=== PATIENT | male | born 1935 | race Caucasian/White ===

== ENCOUNTER 2017-01-23 10:55 | Observation (INO) | payer MEDICARE ==
[2017-01-23] VITALS (7 sets, daily range): BP systolic 151–180; BP diastolic 67–77; PULSE 60–67; RESP 17–23; TEMP 97.5–98.6; O2SAT 95–98
[~2017-01-23] VITALS: Ht 177.8 cm; Wt 84.0 kg
[~2017-01-23 10:55] MED LIST: 1-ME1LIQ PO; ASPI81TA82 PO; D31000TA PO; EMPA1TAB3 PO; GABA300C3 PO; GLUCTAB PO; HYDR10SO PO; LANS30 PO; LIPI80TA16 PO; LISI2.5T55 PO; PLAV75TA PO
[2017-01-23] MEDS ORDERED: ASPIRIN 81 MG CHEW TAB PO ONE (11:30)
[2017-01-23] MEDS ORDERED: SODIUM CHLORIDE 0.9% FLUSH 10 ML FLUSH IVF PRN (11:30)
--- NOTE | 2017-01-23 11:31 | PD ---
HPI Chief Complaint: Chest Pain Time Seen by Provider: 11:15 Travel History International Travel<30 days: No Contact w/Intl Traveler<30days: No Traveled to known affect area: No History of Present Illness HPI Patient comes in for evaluation of left sided chest pain that began today. Patient describes pain as dull ache without radiation. Patient reports associated left upper extremity numbness and tingling. Patient reports he's been having intermittent left upper extremity numbness and tingling over the past couple days but states this first time he has had chest pain with it. Patient reports symptoms lasted approximately 2 hours. Denies any symptoms currently. Patient denies anything making it better or worse. Denies any nausea, vomiting, shortness of breath, headaches, dizziness, diaphoresis, abdominal pain, weakness, or fevers. Patient is uncertain of his last stress test or cardiac catheter. Patient does have a history of a stent and pacemaker. Patient is followed by Dr. Gongora and reports last seeing him 6 months ago. Patient's past medical history includes sick sinus syndrome, diabetes mellitus, CAD, GERD, hypertension, and hyperlipidemia. Patient reports taking baby aspirin daily reports and taking it this morning. PFSH Past Medical History Arthritis: Yes Blood Disorders: No Cancer: No Cardiac Catheterization: Yes Cardiovascular Problems: Yes (STENTS, PACEMAKER ) Diabetes: Yes (insulin, metformin) Diminished Hearing: Yes (hearing aid left ) Endocrine: Yes Gastrointestinal Disorders: Yes (REFLUX) GERD: Yes Genitourinary: No Hepatitis: No Hiatal Hernia: No Hypertension: Yes Immune Disorder: No Musculoskeletal: Yes (NECK, ARTHRITIES) Neurologic: Yes (TINGLING IN LEFT ARM AND LEFT LEG PERIODICALLY) Psychiatric: No Reproductive: No Respiratory: Yes Thyroid Disease: No Past Surgical History Abdominal Surgery: No AICD: No Arteriovenous Shunt: No Cardiac Surgery: No Coronary Stent: Yes (x1) Ear Surgery: No Endocrine Surgery: No Eye Surgery: No Genitourinary Surgery: No Insulin Pump: No Joint Replacement: Yes (BILAT KNEES) Oral Surgery: Yes (T & A) Pacemaker: No Thoracic Surgery: No Tonsillectomy: Yes Other Surgery: Yes Social History Alcohol Use: Yes (OCC) Tobacco Use: No Substance Use: No Allergies-Medications (Allergen,Severity, Reaction): Coded Allergies: Sulfa (Sulfonamide Antibiotics) (Verified Allergy, Severe, Hives, 01/23/17 ) captopril (Verified Allergy, Unknown, 01/23/17) codeine (Verified Allergy, Unknown, 01/23/17) metoprolol (Verified Allergy, Unknown, 01/23/17) Reported Meds & Prescriptions Reported Meds & Active Scripts Active Amlodipine Besylate 10 mg (Amlodipine Besylate) 10 Mg Tab 1 Tab PO DAILY Hydrocodone/Acetaminophen 10 mg/325 mg 1 Tab 1 Tab PO Q4H PRN Reported D3 (Cholecalciferol) 1,000 Unit Tab 5,000 Unit PO DAILY Jardiance (Empagliflozin) 25 Mg Tab 1 Tab PO Lisinopril 2.5 mg (Lisinopril) 2.5 Mg Tab 1 Tab PO DAILY Lansoprazole 30 Mg Cap 30 Mg PO DAILY Plavix (Clopidogrel Bisulfate) 75 Mg Tab 75 Mg PO DAILY Lipitor (Atorvastatin Calcium) 80 Mg Tab 80 Mg PO HS Gabapentin 300 Mg Cap 600 Mg PO HS Aspir-81 (Aspirin) 81 Mg Tab 162 Mg PO DAILY Metformin (Metformin HCl) 500 Mg Tab 1,000 Mg PO DAILYAC Review of Systems Except as stated in HPI: all other systems reviewed are Neg Physical Exam Narrative GENERAL: Well-developed, overly nourished, in no acute distress, and non-ill appearing. SKIN: Focused skin assessment warm and dry. HEAD: Atraumatic. Normocephalic. EYES: Pupils equal and round. EOMI. No scleral icterus. No injection or drainage. ENT: No nasal bleeding or discharge. Mucous membranes pink and moist. NECK: Trachea midline. No JVD. Supple. No nuclear rigidity. CARDIOVASCULAR: Regular rate and rhythm. Murmur appreciated. RESPIRATORY: No accessory muscle use. No respiratory distress. Clear to auscultation. Breath sounds equal bilaterally. MUSCULOSKELETAL: No obvious deformities. No clubbing. No cyanosis. No edema. Full range of motion. NEUROLOGICAL: Awake and alert. No obvious cranial nerve deficits. Motor grossly within normal limits. Normal speech. PSYCHIATRIC: Appropriate mood and affect; insight and judgment normal. Data Data Last Documented VS Vital Signs Date Time Temp Pulse Resp B/P (MAP) Pulse Ox O2 Delivery O2 Flow Rate FiO2 01/23/17 11:40 17 97 Room Air 01/23/17 10:57 98.6 65 180/74 (109) Orders Orders Electrocardiogram (01/23/17 11:24) Basic Metabolic Panel (Bmp) (01/23/17 11:24) Ckmb (Isoenzyme) Profile (01/23/17 11:24) Complete Blood Count With Diff (01/23/17 11:24) Magnesium (Mg) (01/23/17 11:24) Prothrombin Time / Inr (Pt) (01/23/17 11:24) Act Partial Throm Time (Ptt) (01/23/17 11:24) Troponin I (01/23/17 11:24) Chest, Single Ap (01/23/17 11:24) Ecg Monitoring (01/23/17 11:24) Bilateral Bp Monitoring (01/23/17 11:24) Iv Access Insert/Monitor (01/23/17 11:24) Oximetry (01/23/17 11:24) Oxygen Administration (01/23/17 11:24) Aspirin Chew (Aspirin Chew) (01/23/17 11:30) Sodium Chloride 0.9% Flush (Ns Flush) (01/23/17 11:30) CKMB (01/23/17 11:50) CKMB% (01/23/17 11:50) Admit Order (Ed Use Only) (01/23/17 12:55) Labs Laboratory Tests Test 01/23/17 11:50 White Blood Count 5.4 TH/MM3 Red Blood Count 4.19 MIL/MM3 Hemoglobin 14.0 GM/DL Hematocrit 42.1 % Mean Corpuscular Volume 100.4 FL Mean Corpuscular Hemoglobin 33.5 PG Mean Corpuscular Hemoglobin Concent 33.4 % Red Cell Distribution Width 12.4 % Platelet Count 125 TH/MM3 Mean Platelet Volume 9.0 FL Neutrophils (%) (Auto) 79.8 % Lymphocytes (%) (Auto) 12.2 % Monocytes (%) (Auto) 6.6 % Eosinophils (%) (Auto) 1.1 % Basophils (%) (Auto) 0.3 % Neutrophils # (Auto) 4.3 TH/MM3 Lymphocytes # (Auto) 0.7 TH/MM3 Monocytes # (Auto) 0.4 TH/MM3 Eosinophils # (Auto) 0.1 TH/MM3 Basophils # (Auto) 0.0 TH/MM3 CBC Comment DIFF FINAL Differential Comment Prothrombin Time 11.6 SEC Prothromb Time International Ratio 1.0 RATIO Activated Partial Thromboplast Time 26.3 SEC Blood Urea Nitrogen 16 MG/DL Creatinine 1.07 MG/DL Random Glucose 331 MG/DL Calcium Level 8.9 MG/DL Magnesium Level 1.9 MG/DL Sodium Level 134 MEQ/L Potassium Level 5.0 MEQ/L Chloride Level 99 MEQ/L Carbon Dioxide Level 29.6 MEQ/L Anion Gap 5 MEQ/L Estimat Glomerular Filtration Rate 67 ML/MIN Total Creatine Kinase 166 U/L Creatine Kinase MB 1.4 NG/ML Troponin I LESS THAN 0.02 NG/ML MDM Medical Decision Making Medical Screen Exam Complete: Yes Emergency Medical Condition: Yes Interpretation(s) EKG reviewed by Dr. Galeano shows atrial paced rhythm with ventricular rate of 76. No STEMI. Differential Diagnosis Acute coronary syndrome, atypical chest pain, electrolyte melena, pneumonia, other Narrative Course Patient was seen and examined. Initial laboratory radiological studies were ordered. IV was established and patient placed on cardiac monitoring. Patient given additional dose of aspirin. Discussed patient with Dr. Milton, who recommends contacting patient's field worker to see if they want patient in the chest pain center versus admitted to medicine. Discussed patient with patient' s field worker, who recommends placing patient in the chest pain center. Discussed all findings and plan of care with patient was agreeable for admission. All questions were answered. Patient remained stable throughout ED course. Physician Communication Physician Communication [phone] gongora patient's field worker, who recommended having patient placed in the place a chest pain center for additional workup and he can be contacted if anything comes out positive. Diagnosis Primary Impression: Chest pain Qualified Codes: R07.9 - Chest pain, unspecified Admitting Information Admitting Physician Requests: Observation Condition: Stable Bebo Jimenes Jan 23, 2017 11:31
--- NOTE | 2017-01-23 11:56 | RADRPT ---
EXAM DATE/TIME: 01/23/2017 11:38 [facility] COMPARISON: CHEST SINGLE AP, August 01, 2015, 9:45. INDICATIONS : Chest pain. MEDICAL HISTORY : Myocardial infarction. SURGICAL HISTORY : Coronary artery stent. Pacemaker. ENCOUNTER: Initial ACUITY: 1 day PAIN SCORE: 6/10 LOCATION: Bilateral chest FINDINGS: A single view of the chest demonstrates the lungs to be symmetrically aerated without evidence of mas s, infiltrate or effusion. Pacer on the left. The cardiomediastinal contours are unremarkable. Oss eous structures are intact. CONCLUSION: No acute disease. Ivan Eisenberg MD FACR on January 23, 2017 at 11:54 Board Certified Radiologist. This report was verified electronically.
[2017-01-23 12:24] LABS: AUTOMATED NEUTROPHIL # 4.3 TH/MM3 (1.8-7.7); BASOPHIL % 0.3 % (0.0-2.0); EOSINOPHIL # 0.1 TH/MM3 (0-0.4); EOSINOPHIL % 1.1 % (0.0-4.0); HEMATOCRIT 42.1 % (39.0-51.0); HEMO FLAGS DIFF FINAL; LYMPH % 12.2 % (9.0-44.0); LYMPHOCYTE # 0.7 TH/MM3 (1.0-4.8); MEAN CELL VOLUME 100.4 FL (80.0-100.0); MEAN CORPUSCULAR HEMOGLOBIN 33.5 PG (27.0-34.0); MEAN CORPUSCULAR HGB CONC 33.4 % (32.0-36.0); MONO % 6.6 % (0.0-8.0); NEUT % 79.8 % (16.0-70.0); PLATELET COUNT 125 TH/MM3 (150-450); RED BLOOD COUNT 4.19 MIL/MM3 (4.50-5.90); RED CELL DISTRIBUTION WIDTH 12.4 % (11.6-17.2); WHITE BLOOD COUNT 5.4 TH/MM3 (4.0-11.0)
[2017-01-23 12:31] LABS: APTT (PATIENT) 26.3 SEC (24.3-30.1); PROTHROMBIN TIME - PATIENT 11.6 SEC (9.8-11.6)
[2017-01-23 12:37] LABS: ANION GAP 5 MEQ/L (5-15); BICARBONATE 29.6 MEQ/L (21.0-32.0); BLOOD UREA NITROGEN 16 MG/DL (7-18); CHLORIDE 99 MEQ/L (98-107); GLOMERULAR FILTRATION RATE 67 ML/MIN (>89); MAGNESIUM 1.9 MG/DL (1.5-2.5); SODIUM (NA) 134 MEQ/L (136-145)
[2017-01-23 12:40] LABS: CREATINE KINASE 166 U/L (39-308)
[2017-01-23 12:52] LABS: CKMB 1.4 NG/ML (0.5-3.6)
--- NOTE | 2017-01-23 13:39 | EKG ---
Date Performed: 01/23/2017 Time Performed: 11:06:57 PTAGE: 81 years EKG: ELECTRONIC ATRIAL PACEMAKER LEFT ANTERIOR FASCICULAR BLOCK MINIMAL VOLTAGE CRITERIA FOR LVH , CONSIDER NORMAL VARIANT ANTEROSEPTAL MYOCARDIAL INFARCTION ABNORMAL ECG PREVIOUS TRACING : 08/02/2015 05.37 DOCTOR: Juan Manuel Lopez Interpretating Date/Time 01/23/2017 13:38:08
[2017-01-23] MEDS ORDERED: LISI-519 PO (14:07)
[2017-01-23] MEDS ORDERED: LANTUS2P SQ (14:11)
[2017-01-23] MEDS ORDERED: NOVOLOGP2 SQ ×2 (14:11→14:29)
[2017-01-23] MEDS ORDERED: cloNIDine HCL 0.1 MG TAB PO PRN (14:15)
[2017-01-23] MEDS ORDERED: ACETAMINOPHEN/HYDROcodone 325 MG/7.5 MG TAB PO PRN (14:15)
[2017-01-23] MEDS ORDERED: ONDANSETRON HCL 4 MG/2 ML VIAL IV PUSH PRN (14:15)
[2017-01-23] MEDS ORDERED: ACETAMINOPHEN 500 MG CPLT PO PRN (14:15)
[2017-01-23] MEDS ORDERED: GLUCAGON 1 MG/ML VIAL OTHER PRN (14:15)
[2017-01-23] MEDS ORDERED: SODIUM CHLORIDE 0.9% FLUSH 5 ML FLUSH IVF PRN (14:15)
[2017-01-23] MEDS ORDERED: DEXTROSE 50% IN WATER 50 ML VIAL(D50) IV PUSH PRN (14:15)
[2017-01-23] MEDS ORDERED: HYDR25TA5 PO (14:29)
[2017-01-23 16:15] LABS: CREATINE KINASE 158 U/L (39-308)
[2017-01-23 16:27] LABS: CKMB 1.2 NG/ML (0.5-3.6)
--- NOTE | 2017-01-23 16:30 | HHI.HP ---
[facility] Primary Care Physician Rosalba Edward Jr, MD Chief Complaint Chest pain History of Present Illness This is a 81-year-old male with history of CAD with stenting most recently 2013 as well as having a pacemaker July [address] John polk that presents to ED with a complaint of a dull left-sided chest discomfort that began 8:00 this morning. It was 4 out of 10. Mildly diaphoretic. No shortness of breath or nausea. Symptoms lasted 3 hours. Symptoms do not feel similar to when eating his stent. Denies recent illness. Denies fevers or chills. He believes he is compliant was medications however he will have to look at his medications at home to see be still taking a statin. Review of Systems General: Patient denies fevers, chills recent, and recent travel HEENT: Patient denies headache, sore throat, difficulty swallowing. Cardiovascular: Has the chest discomfort as mentioned above. Denies sensation of heart beating rapidly or irregularly. No syncope. Mildly diaphoretic. Respiratory: Denies shortness of breath or inspirational chest discomfort. Denies coughing wheezing or hemoptysis. GI: Patient denies nausea, vomiting, diarrhea, abdominal pain, bloody stools. Musculoskeletal: Patient denies joint pain or edema. Denies calf pain or edema. Neurovascular: Patient denies numbness, tingling, weakness in extremities. Denies headache. Endocrine: Denies polyuria and polydipsia. Hematologic: Denies easy bruising. Skin: Denies rash or itching. Past Family Social History Allergies: Coded Allergies: Sulfa (Sulfonamide Antibiotics) (Verified Allergy, Severe, Hives, 01/23/17 ) captopril (Verified Allergy, Unknown, 01/23/17) codeine (Verified Allergy, Unknown, 01/23/17) metoprolol (Verified Allergy, Unknown, 01/23/17) Past Medical History CAD with stenting. Pacemaker. Hypertension, hyperlipidemia, diabetes. Past Surgical History Pacemaker. Cardiac catheterization with stenting. Reported Medications Reported Meds & Active Scripts Active 1-Methyl 2-Pyrrolidinone (1-Methyl 2-Pyrrolidone (Bulk)) 10 Mg Tab 1 Tab PO DAILY Hydrocodone/Acetaminophen (Miscellaneous Medication) 1 Tab 1 Tab PO Q4H PRN Reported Novolog Inj (Insulin Aspart) 1,000 Unit/10 Ml Vial 5-12 Units SQ ACHS Max dose at bedtime ( ) units; sugars less than 70,(0) units; sugars 150-199,(2) units; sugars 200-249,(4) units; sugars 250-299,(7) units; sugars 300-349,(10) units; sugars greater than 349,(12)units Hydrochlorothiazide 25 Mg Tab 25 Mg PO DAILY Lantus Inj (Insulin Glargine) 1,000 Unit/10 Ml Vial 15 Units SQ HS Lisinopril 5 Mg Tab 5 Mg PO DAILY D3 (Cholecalciferol) 1,000 Unit Tab 5,000 Unit PO DAILY Lansoprazole 30 Mg Cap 30 Mg PO DAILY Plavix (Clopidogrel Bisulfate) 75 Mg Tab 75 Mg PO DAILY Lipitor (Atorvastatin Calcium) 80 Mg Tab 80 Mg PO HS Gabapentin 300 Mg Cap 600 Mg PO HS Aspir-81 (Aspirin) 81 Mg Tab 162 Mg PO DAILY Glucophage XR 24 HR (Metformin HCl) 500 Mg Tab 1,000 Mg PO DAILYAC Active Ordered Medications Current Medications Medications (Trade) Dose Ordered Sig/Elke Route Start Time Stop Time Status Last Admin (Lipitor) 80 mg HS PO 01/23/17 21:00 (Plavix) 75 mg DAILY PO 01/24/17 09:00 (Neurontin) 600 mg HS PO 01/23/17 21:00 (Protonix) 40 mg DAILY PO 01/24/17 09:00 (NS Flush) 2 ml UNSCH PRN IVF 01/23/17 14:15 (NS Flush) 2 ml BID IVF 01/23/17 21:00 (Tylenol) 500 mg Q4H PRN PO 01/23/17 14:15 ([place] 7.5-325 Mg) 1 tab Q4H PRN PO 01/23/17 14:15 (Zofran Inj) 4 mg Q6H PRN IV PUSH 01/23/17 14:15 (Aspirin) 325 mg DAILY PO 01/24/17 09:00 (Catapres) 0.1 mg Q4H PRN PO 01/23/17 14:15 (D50w (Vial) Inj) 50 ml UNSCH PRN IV PUSH 01/23/17 14:15 (Glucagon Inj) 1 mg UNSCH PRN OTHER 01/23/17 14:15 (NovoLOG SUPPLEMENTAL SCALE) 1 ACHS SLIDING SCALE SQ 01/23/17 17:00 (Prinivil) 5 mg HS PO 01/23/17 21:00 Family History There is family history of CAD. Social History Patient quit smoking 30+ years ago. He has occasional glass of wine at night. Denies illicit drugs. Physical Exam Vital Signs Vital Signs Date Time Temp Pulse Resp B/P (MAP) Pulse Ox O2 Delivery O2 Flow Rate FiO2 01/23/17 15:57 79 16 153/71 (98) 99 01/23/17 15:12 21 01/23/17 14:30 62 23 158/74 (102) 97 Room Air 01/23/17 12:59 60 17 160/67 (98) 95 Room Air 01/23/17 11:40 17 97 Room Air 01/23/17 10:57 98.6 65 18 180/74 (109) 98 Room Air Physical Exam GENERAL: This is a well-nourished, well-developed patient, in no apparent distress. Patient speaks in clear complete sentences. Patient is pleasant. HEENT: Head is atraumatic and normocephalic. Neck is supple without lymphadenopathy and trachea is midline. No JVD or carotid bruits. CARDIOVASCULAR: Grade 2-3 systolic murmur right sternal border radiating to the neck. Regular rate and rhythm without gallops, or rubs. RESPIRATORY: Clear to auscultation. Breath sounds equal bilaterally. No wheezes , rales, or rhonchi. Chest wall is nontender. No use of accessory muscles. GASTROINTESTINAL: Abdomen is nontender, nondistended. Abdomen soft. No obvious pulsatile mass or bruit. No CVA tenderness. Strong femoral pulses bilaterally. Normal bowel sounds in all quadrants. MUSCULOSKELETAL: Patient is moving upper and lower extremities freely. No calf tenderness or edema, no Homans sign. Strong pulses in upper and lower extremities. NEUROLOGICAL: Patient is alert and oriented. Cranial nerves 2-12 are grossly intact. No focal deficits and speech is clear. SKIN: No rash and turgor is normal. Laboratory Laboratory Tests Test 01/23/17 11:50 01/23/17 15:40 White Blood Count 5.4 Red Blood Count 4.19 Hemoglobin 14.0 Hematocrit 42.1 Mean Corpuscular Volume 100.4 Mean Corpuscular Hemoglobin 33.5 Mean Corpuscular Hemoglobin Concent 33.4 Red Cell Distribution Width 12.4 Platelet Count 125 Mean Platelet Volume 9.0 Neutrophils (%) (Auto) 79.8 Lymphocytes (%) (Auto) 12.2 Monocytes (%) (Auto) 6.6 Eosinophils (%) (Auto) 1.1 Basophils (%) (Auto) 0.3 Neutrophils # (Auto) 4.3 Lymphocytes # (Auto) 0.7 Monocytes # (Auto) 0.4 Eosinophils # (Auto) 0.1 Basophils # (Auto) 0.0 CBC Comment DIFF FINAL Differential Comment Prothrombin Time 11.6 Prothromb Time International Ratio 1.0 Activated Partial Thromboplast Time 26.3 Blood Urea Nitrogen 16 Creatinine 1.07 Random Glucose 331 Calcium Level 8.9 Magnesium Level 1.9 Sodium Level 134 Potassium Level 5.0 Chloride Level 99 Carbon Dioxide Level 29.6 Anion Gap 5 Estimat Glomerular Filtration Rate 67 Total Creatine Kinase 166 158 Creatine Kinase MB 1.4 Troponin I LESS THAN 0.02 0.02 Result Diagram: 01/23/17 1150 01/23/17 1150 Imaging Last 48 hours Impressions Chest X-Ray 01/23/17 1124 Signed Impressions: Service Date/Time: Monday, January 23, 2017 11:38 - CONCLUSION: No acute disease. Ivan Eisenberg MD FACR Course Initial EKG is atrial paced. No significant ST segment depressions or elevations. Caprini VTE Risk Assessment Caprini VTE Risk Assessment: Mod/High Risk (score >= 2) Caprini Risk Assessment Model Point Value = 1 Point Value = 2 Point Value = 3 Point Value = 5 Age 41-60 Minor surgery BMI > 25 kg/m2 Swollen legs Varicose veins or History of unexplained or recurrent spontaneous Oral contraceptives or hormone replacement Sepsis (< 1 month) Serious lung disease, including pneumonia (< 1 month) Abnormal pulmonary function Acute myocardial infarction Congestive heart failure (< 1 month) History of inflammatory bowel disease Medical patient at bed rest Age 61-74 Arthroscopic surgery Major open surgery (> 45 min) Laparoscopic surgery (> 45 min) Malignancy Confined to bed (> 72 hours) Immobilizing plaster cast Central venous access Age >= 75 History of VTE Family history of VTE Factor V Leiden Prothrombin [id number] Lupus anticoagulant Anticardiolipin antibodies Elevated serum homocysteine Heparin-induced thrombocytopenia Other congenital or acquired thrombophilia Stroke (< 1 month) Elective arthroplasty Hip, pelvis, or leg fracture Acute spinal cord injury (< 1 month) Prophylaxis Regimen Total Risk Factor Score Risk Level Prophylaxis Regimen 0-1 Low Early ambulation 2 Moderate Order ONE of the following: *Sequential Compression Device (SCD) *Heparin 5000 units SQ BID 3-4 Higher Order ONE of the following medications: *Heparin 5000 units SQ TID *Enoxaparin/Lovenox 40 mg SQ daily (WT < 150 kg, CrCl > 30 mL/min) *Enoxaparin/Lovenox 30 mg SQ daily (WT < 150 kg, CrCl > 10-29 mL/min) *Enoxaparin/Lovenox 30 mg SQ BID (WT < 150 kg, CrCl > 30 mL/min) AND/OR *Sequential Compression Device (SCD) 5 or more Highest Order ONE of the following medications: *Heparin 5000 units SQ TID (Preferred with Epidurals) *Enoxaparin/Lovenox 40 mg SQ daily (WT < 150 kg, CrCl > 30 mL/min) *Enoxaparin/Lovenox 30 mg SQ daily (WT < 150 kg, CrCl > 10-29 mL/min) *Enoxaparin/Lovenox 30 mg SQ BID (WT < 150 kg, CrCl > 30 mL/min) AND *Sequential Compression Device (SCD) Assessment and Plan Assessment and Plan * Chest pain: Patient will continue to have serial cardiac enzymes and EKGs for ruling out purposes. He was seen by Dr. Gleason of cardiology in the chest pain center and will undergo a Lexiscan in the morning if he rules out. The ER physician spoke with Dr. gongora about this patient. Dr. gongora request be notified if the stress test is abnormal. Patient will need to follow-up with his PCP and side door man on outpatient basis. * CAD: We'll reassess with the stress test. * Diabetes: Sliding scale coverage. Resume medication at discharge. Follow diabetic diet. * Hypertension: Continue current medication. * Hyperlipidemia: Continue current medication. Patient is stable at this time. He is agreeable to this plan. Raad Wyatt Jan 23, 2017 16:30
[2017-01-23] MEDS: INSULIN ASPART SUPPLEMENTAL SCALE SQ SCH ×2 (17:00→23:27)
[2017-01-23] MEDS ORDERED: LISINOPRIL 5 MG TAB PO SCH (21:00)
[2017-01-23] MEDS ORDERED: ATORVASTATIN 80 MG TAB PO SCH (21:00)
[2017-01-23] MEDS: SODIUM CHLORIDE 0.9% FLUSH 5 ML FLUSH IVF SCH (21:00)
[2017-01-23] MEDS ORDERED: GABAPENTIN 300 MG CAP PO SCH (21:00)
[2017-01-24] VITALS (7 sets, daily range): BP systolic 139–154; BP diastolic 66–73; PULSE 61–71; RESP 17–18; TEMP 97.4–98.3; O2SAT 95–96
[2017-01-24] MEDS: INSULIN ASPART SUPPLEMENTAL SCALE SQ SCH ×2 (08:00→12:00)
[2017-01-24] MEDS: SODIUM CHLORIDE 0.9% FLUSH 5 ML FLUSH IVF SCH (08:12)
[2017-01-24] MEDS ORDERED: ASPIRIN 325 MG TAB PO SCH (09:00)
[2017-01-24] MEDS ORDERED: PANTOPRAZOLE SOD 40 MG DELAYED RELEASE TAB PO SCH (09:00)
[2017-01-24] MEDS ORDERED: CLOPIDOGREL 75 MG TAB PO SCH (09:00)
[2017-01-24] MEDS ORDERED: REGADENOSON INJ 0.4 MG/5 ML SYR ONE (09:59)
--- NOTE | 2017-01-24 10:42 | RADRPT ---
EXAM DATE/TIME: 01/24/2017 08:59 [facility] COMPARISON: MYOCARDIAL PERF PHARM SPECT, GATED W/EF, November 11, 2014, 13:07. INDICATIONS : Left sided chest pain. Angina. DOSE: 25.7 mCi Tc99m Myoview at stress. 8.4 mCi Tc99m Myoview at rest. 0.4 mg Lexiscan STRESS SYMPTOMS: Dyspnea and dizziness. EJECTION FRACTION: 48% MEDICAL HISTORY : Diabetes mellitus type 2. Hypertension. Gastroesophageal reflux disease. SURGICAL HISTORY : Tonsillectomy. Pacemaker. ENCOUNTER: Initial ACUITY: 1 day PAIN SCALE: 4/10 LOCATION: Left chest TECHNIQUE: The patient underwent pharmacologic stress with infusion of prescribed dose. Continuous ECG tracing was monitored during stress. Gated SPECT imaging was performed after stress and conventional SPECT i maging was performed at rest. The examination was performed on a SPECT/CT scanner, both attenuation and non-corrected datasets were reviewed. FINDINGS: DISTRIBUTION: The maximum perfused segment at stress is in the lateral wall. PERFUSION STUDY: There continues to be diminished perfusion along the septal and inferior bran on the stress images. There is no evidence of any significant redistribution on the rest images to indicate ischemic myocar dial changes. This pattern is stable compared to the prior study of 11/11/2014. GATED STUDY: There is some hypokinesis of the septal wall. Otherwise there is good contraction of the ventricle. No significant changes compared to the prior study. CONCLUSION: 1. There is fixed stable defects involving the inferior and septal bran on the stress images without redistribution. No definite ischemic myocardial changes are seen. These findings are stable compared to 2014. RISK CATEGORY: low Braulio Jim MD on January 24, 2017 at 10:36 Board Certified Radiologist. This report was verified electronically.
--- NOTE | 2017-01-24 11:07 | HHI.DCPOC ---
Discharge Care Plan Diagnosis: (1) Chest pain (2) CAD (coronary artery disease) (3) H/O heart artery stent (4) Hyperlipidemia (5) Hypertension (6) DM (diabetes mellitus) (7) GERD (gastroesophageal reflux disease) Goals to Promote Your Health * To prevent worsening of your condition and complications * To maintain your health at the optimal level Directions to Meet Your Goals Take your medications as prescribed Follow your dietary instruction Follow activity as directed Keep your appointments as scheduled Take your immunizations and boosters as scheduled If your symptoms worsen call your PCP, if no PCP go to Urgent Care Center or Emergency Room Smoking is Dangerous to Your Health. Avoid second hand smoke Call the 24-hour hour crisis hotline for domestic abuse at Raad Wyatt Jan 24, 2017 11:07
--- NOTE | 2017-01-24 13:28 | TR ---
Date Performed: 01/24/2017 Time Performed: 09:35:15 DOCTOR: Ketan Nation DRUG LIST: CLINICAL HISTORY: ANGINA REASON FOR TEST: REASON FOR ENDING: OBSERVATION: CONCLUSION: Lexiscan stress test was performed under standard four minute protocol. Radionuclide was injected one minute prior to ending the test. No electrocardiographic abormalities were present to suggest ischemia. Nuclear imaging and interpretation are pending. COMMENTS:
--- NOTE | 2017-01-24 13:37 | EKG ---
Date Performed: 01/23/2017 Time Performed: 15:37:31 PTAGE: 81 years EKG: ELECTRONIC ATRIAL PACEMAKER LEFT ANTERIOR FASCICULAR BLOCK MINIMAL VOLTAGE CRITERIA FOR LVH , CONSIDER NORMAL VARIANT SEPTAL MYOCARDIAL INFARCTION ABNORMAL ECG NO SIG CHANGE PREVIOUS TRACING : 01/23/2017 11.06 DOCTOR: Ketan Nation Interpretating Date/Time 01/24/2017 13:36:16
--- NOTE | 2017-01-24 13:37 | EKG ---
Date Performed: 01/23/2017 Time Performed: 17:29:18 PTAGE: 81 years EKG: ELECTRONIC ATRIAL PACEMAKER INTRAVENTRICULAR CONDUCTION DELAY POSSIBLE RIGHT VENTRICULAR HY PERTROPHY SEPTAL MYOCARDIAL INFARCTION ABNORMAL ECG PREVIOUS TRACING : 01/23/2017 15.37 DOCTOR: Ketan Nation Interpretating Date/Time 01/24/2017 13:35:30
== END 2017-01-24 15:14 | disposition home or self-care (01) ==
LOC: NEPE 10:55 → NEDA 13:13 → NEPGCP 16:07
DX: R07.89 Other chest pain (principal); I25.10 Atherosclerotic heart disease of native coronary artery without angina pectoris; I10 Essential (primary) hypertension; E78.5 Hyperlipidemia, unspecified; E11.9 Type 2 diabetes mellitus without complications; K21.9 Gastro-esophageal reflux disease without esophagitis; I44.4 Left anterior fascicular block; H91.90 Unspecified hearing loss, unspecified ear; Z95.5 Presence of coronary angioplasty implant and graft; Z79.899 Other long term (current) drug therapy; Z87.891 Personal history of nicotine dependence; Z79.82 Long term (current) use of aspirin; Z79.4 Long term (current) use of insulin; Z95.0 Presence of cardiac pacemaker
CPT/HCPCS: 71010; 78452; 80048; 82550; 82552; 82948; 83735; 84484; 85025; 85610; 85730; 93005; 93017; 96372; 99285; A9502; G0378; J1815; J2785

== ENCOUNTER 2017-09-17 06:19 | Observation (INO) | payer MEDICARE ==
[~2017-09-17] VITALS: Ht 177.8 cm; Wt 85.0 kg
[~2017-09-17 06:19] MED LIST changes: -EMPA1TAB3 PO; +HYDR25TA5 PO; +LANTUS2P SQ; +LISI-519 PO; -LISI2.5T55 PO; +NOVOLOGP2 SQ
[2017-09-17 06:22] VITALS: BP 186/80; PULSE 79; RESP 28; TEMP 97.5; O2SAT 84
[2017-09-17 06:31] VITALS: BP 182/73; PULSE 78; RESP 22; O2SAT 94
[2017-09-17] MEDS ORDERED: ATOR80TA45 PO (06:39)
[2017-09-17] MEDS ORDERED: AMLO5TAB2 PO (06:39)
[2017-09-17] MEDS ORDERED: VITA2000 PO (06:39)
[2017-09-17] MEDS ORDERED: METF500T PO (06:39)
[2017-09-17] MEDS ORDERED: HYDR-3583 PO (06:39)
[2017-09-17] MEDS ORDERED: LISI40TA PO (06:39)
[2017-09-17] MEDS ORDERED: GABA600T PO (06:39)
[2017-09-17] MEDS ORDERED: LANS30CA PO (06:39)
[2017-09-17] MEDS ORDERED: ASPI-516 CHEW (06:39)
[2017-09-17] MEDS ORDERED: NITROGLYCERIN 2% OINT 1 GM PACKET TOPICAL ONE (06:45)
[2017-09-17] MEDS ORDERED: SODIUM CHLORIDE 0.9% FLUSH 10 ML FLUSH IVF PRN (06:45)
[2017-09-17] MEDS: NITROGLYCERIN 0.4 MG SL 25 TABS/BTL SL PRN ×2 (06:45→07:00)
[2017-09-17] MEDS ORDERED: ASPIRIN 81 MG CHEW TAB CHEW ONE (06:45)
--- NOTE | 2017-09-17 07:01 | PD ---
HPI Chief Complaint: Respiratory Symptoms Time Seen by Provider: 06:27 Travel History International Travel<30 days: No Contact w/Intl Traveler<30days: No Traveled to known affect area: No History of Present Illness HPI The patient is an 82 year old male who presents to the [facility] emergency department with a history of shortness of breath that reportedly began this morning after he got up and walked to the living room. The patient reports that with walking he became suddenly very short of breath. He reports that over the last 2-3 weeks he has noticed some increased lower extremity edema. He reports that he has been diagnosed with congestive heart failure in the past. He is on a diuretic. From reviewing his medication record he is on hydrochlorothiazide once a day. The patient reports that he also takes an aspirin daily. He reports having history of atrial fibrillation, prior myocardial infarction, cardiac stent placement, and pacemaker placement. He reports having an occasional dry cough. He denies having any chest congestion. He denies having any known recent fevers. He denies having any chest pain, however he does report discomfort in the midepigastric area associated with this shortness of breath. On review of systems otherwise, the patient denies having any diaphoresis, nausea, vomiting, neck pain, abdominal pain, diarrhea, urinary symptoms, or neurologic symptoms. [facility] Past Medical History Narrative Medical The patient's past medical history is significant for coronary artery disease with prior LA, history of cardiac catheterization with stent placement, history of pacemaker placement, hypertension, hyperlipidemia, diabetes mellitus. The patient's diagnostic radiologic technologist is Dr. Lopez. The patient's primary care physician is Dr. Devi. Arthritis: Yes Blood Disorders: No Cancer: No Cardiac Catheterization: Yes Cardiovascular Problems: Yes (STENTS, PACEMAKER ) Diabetes: Yes (insulin, metformin) Patient Takes Glucophage: Yes Diminished Hearing: Yes (hearing aid left ) Endocrine: Yes Gastrointestinal Disorders: Yes (REFLUX) GERD: Yes Genitourinary: No Hepatitis: No Hiatal Hernia: No Hypertension: Yes Immune Disorder: No Musculoskeletal: Yes (NECK, ARTHRITIES) Neurologic: Yes (TINGLING IN LEFT ARM AND LEFT LEG PERIODICALLY) Psychiatric: No Reproductive: No Respiratory: Yes Thyroid Disease: No Tetanus Vaccination: Unknown Influenza Vaccination: Yes Past Surgical History Narrative Surgical The patient's past surgical history is significant for a pacemaker placement, cardiac catheterization with stent placement, tonsil and adenoidectomy, and bilateral knee replacements. Abdominal Surgery: No AICD: No Arteriovenous Shunt: No Cardiac Surgery: No Coronary Stent: Yes (x1) Ear Surgery: No Endocrine Surgery: No Eye Surgery: No Genitourinary Surgery: No Insulin Pump: No Joint Replacement: Yes (BILAT KNEES) Oral Surgery: Yes (T & A) Pacemaker: Yes Thoracic Surgery: No Tonsillectomy: Yes Other Surgery: Yes Family History Family Myocardial Infarction: Yes (father and brother) Social History Alcohol Use: Yes (OCC) Tobacco Use: No Substance Use: No Allergies-Medications (Allergen,Severity, Reaction): Coded Allergies: Sulfa (Sulfonamide Antibiotics) (Verified Allergy, Severe, Hives, 01/23/17 ) captopril (Verified Allergy, Unknown, 01/23/17) codeine (Verified Allergy, Unknown, 01/23/17) metoprolol (Verified Allergy, Unknown, 01/23/17) Reported Meds & Prescriptions Reported Meds & Active Scripts Active Reported Vitamin D3 (Cholecalciferol) 2,000 Unit Cap 2,000 Units PO DAILY Aspirin 81 Mg Chew 81 Mg CHEW DAILY Metformin (Metformin HCl) 500 Mg Tab 500 Mg PO DAILY With a meal Lisinopril 40 Mg Tab 40 Mg PO DAILY Lansoprazole 30 Mg Capdr 30 Mg PO DAILY Hydrocodone-Acetaminophen 10-325 mg Tab 1 Tab PO Q6H PRN Gabapentin 600 Mg Tab 600 Mg PO HS Atorvastatin (Atorvastatin Calcium) 80 Mg Tab 80 Mg PO HS Amlodipine (Amlodipine Besylate) 5 Mg Tab 5 Mg PO DAILY Novolog Inj (Insulin Aspart) 1,000 Unit/10 Ml Vial 5-12 Units SQ ACHS Max dose at bedtime ( ) units; sugars less than 70,(0) units; sugars 150-199,(2) units; sugars 200-249,(4) units; sugars 250-299,(7) units; sugars 300-349,(10) units; sugars greater than 349,(12)units Hydrochlorothiazide 25 Mg Tab 25 Mg PO DAILY Lantus Inj (Insulin Glargine) 1,000 Unit/10 Ml Vial 15 Units SQ HS Review of Systems Except as stated in HPI: all other systems reviewed are Neg General / Constitutional: No: Fever Eyes: No: Visual changes HENT: No: Headaches, Congestion Cardiovascular: Positive: Chest Pain or Discomfort, Dyspnea on exertion, No: Diaphoresis Respiratory: Positive: Cough, Shortness of Breath Gastrointestinal: No: Nausea, Vomiting, Diarrhea, Abdominal Pain Genitourinary: No: Dysuria Musculoskeletal: No: Pain Skin: No Rash Neurologic: No: Weakness, Focal Abnormalities, Change in Mentation, Slurred Speech, Sensory Disturbance Psychiatric: No: Depression Endocrine: No: Polydipsia Hematologic/Lymphatic: No: Easy Bruising Physical Exam Narrative General: The patient is a well-developed well-nourished male, uncomfortable appearing on arrival, short of breath with tachypnea, O2 saturations on room air are 88%. The patient was placed on 2 L nasal cannula O2 and his O2 saturation came up to 93-94% Head and Neck exam: Head is normocephalic atraumatic. Eyes: EOMI, pupils are equal round and reactive to light. Nose: Midline septum with pink mucous membranes Mouth: Dentition unremarkable. Moist mucus membranes. Posterior oropharynx is not erythematous. No tonsillar hypertrophy. Uvula midline. Airway patent. Neck: No palpable lymphadenopathy. No nuchal rigidity. No thyromegaly. Cardiovascular: Irregularly irregular without murmurs, gallops, or rubs. Lungs: Diminished breath sounds in bilateral lung bases with crackles audible in bilateral lung bases, no wheezes or rhonchi. No accessory muscle use noted. Abdomen: Soft, without tenderness to palpation in all 4 quadrants of the abdomen. No guarding, rebound, or rigidity. Normal bowel sounds are audible. No tenderness on palpation of McBurney's point. Negative Brown sign. Extremities: No clubbing or cyanosis. The patient has trace to 1+ pedal edema bilateral lower extremities. 2+ pulses in all 4 extremities. No calf tenderness on palpation. Back: No spinous process tenderness to palpation. No costovertebral angle tenderness to palpation. Neurologic Exam: Grossly nonfocal. Skin Exam: No rash noted. Intact skin that is warm and dry. Data Data Last Documented VS Vital Signs Date Time Temp Pulse Resp B/P (MAP) Pulse Ox O2 Delivery O2 Flow Rate FiO2 09/17/17 06:42 95 Nasal Cannula 3.00 09/17/17 06:31 78 22 182/73 (109) 09/17/17 06:22 97.5 Orders Orders Complete Blood Count With Diff (09/17/17 06:38) Comprehensive Metabolic Panel (09/17/17 06:38) B-Type Natriuretic Peptide (09/17/17 06:38) Act Partial Throm Time (Ptt) (09/17/17 06:38) Prothrombin Time / Inr (Pt) (09/17/17 06:38) Magnesium (Mg) (09/17/17 06:38) Ckmb (Isoenzyme) Profile (09/17/17 06:38) Troponin I (09/17/17 06:38) Iv Access Insert/Monitor (09/17/17 06:38) Electrocardiogram (09/17/17 06:38) Ecg Monitoring (09/17/17 06:38) Oximetry (09/17/17 06:38) Oxygen Administration (09/17/17 06:38) Chest, Single Ap (09/17/17 06:38) Sodium Chloride 0.9% Flush (Ns Flush) (09/17/17 06:45) Aspirin Chew (Aspirin Chew) (09/17/17 06:45) Nitroglycerin 2% Oint (Nitroglycerin 2% (09/17/17 06:45) Nitroglycerin Sl (Nitrostat Sl) (09/17/17 06:45) MDM Medical Decision Making Medical Screen Exam Complete: Yes Emergency Medical Condition: Yes Medical Record Reviewed: Yes Differential Diagnosis Congestive heart failure exacerbation, versus acute coronary syndrome, versus pneumonia, versus pulmonary embolism Narrative Course During the course of the patient's emergency department visit, the patient's history, examination, and differential diagnosis were reviewed with the patient. The patient was placed on a playground monitor with oximetry and frequent blood pressure monitoring. The patient had IV access obtained and blood work sent for analysis. The patient had a EKG done on arrival. The patient's EKG shows an electronic atrial paced rhythm, heart rate of 79, QRS duration 110 ms, QTC [address] segment elevation is noted. The patient's electronic medical record was reviewed. The patient last had a myocardial perfusion stress test done that showed an ejection fraction of 48% at that time with fixed stable defect involving the inferior and septal bran without evidence of ischemia. This was done in January 2017. The patient was initially provided aspirin 243 mg p.o. 1, as he takes a low- dose aspirin daily, nitroglycerin 1 inch the chest wall, sublingual nitroglycerin every 5 minutes 3 as needed chest pain, nitroglycerin 1 inch the chest wall. The patient's laboratory studies and imaging studies are pending at the conclusion of my shift. The patient's case will be checked out to the oncoming emergency physician to disposition the patient based on the conclusion of his workup. I anticipate that the patient will require admission for continued evaluation and treatment. Diagnosis Primary Impression: Chest pain Qualified Codes: R07.9 - Chest pain, unspecified Additional Impression: Shortness of breath Admitting Information Admitting Physician Requests: Admit Lamar Dhillon MD Sep 17, 2017 07:01
[2017-09-17 07:05] VITALS: BP 124/60; PULSE 62; RESP 16; O2SAT 92
--- NOTE | 2017-09-17 07:05 | RADRPT ---
EXAM DATE: 09/17/2017 6:49 AM EDT AGE/SEX: 82 years / Male INDICATIONS: Short of breath, cough. CLINICAL DATA: This is the patient's initial encounter. Patient reports that signs and symptoms have been present for 1 day and indicates a pain score of 0/10. MEDICAL/SURGICAL HISTORY: . Myocardial infarction. Coronary artery stent. Pacemaker. COMPARISON: [facility] [place], CHEST SINGLE AP, 01/23/2017. . FINDINGS: Heart size mildly enlarged. Pacer leads overlie right atrium and right ventricle. Mild interstitial e cira pattern. Trace pleural fluid. No pneumothorax. CONCLUSION: Borderline to mild cardiomegaly with interstitial edema changes in the lungs. Trace pleural fluid. Electronically signed by: Guzman Perez MD 09/17/2017 7:04 AM EDT
[2017-09-17 07:09] LABS: AUTOMATED NEUTROPHIL # 4.3 TH/MM3 (1.8-7.7); BASOPHIL % 0.5 % (0.0-2.0); EOSINOPHIL # 0.1 TH/MM3 (0-0.4); EOSINOPHIL % 2.2 % (0.0-4.0); HEMATOCRIT 43.3 % (39.0-51.0); HEMOGLOBIN 14.5 GM/DL (13.0-17.0); LYMPH % 16.6 % (9.0-44.0); MEAN CELL VOLUME 98.2 FL (80.0-100.0); MEAN CORPUSCULAR HEMOGLOBIN 32.9 PG (27.0-34.0); MEAN CORPUSCULAR HGB CONC 33.5 % (32.0-36.0); MEAN PLATELET VOLUME 9.3 FL (7.0-11.0); MONO % 9.5 % (0.0-8.0); MONOCYTE # 0.6 TH/MM3 (0-0.9); NEUT % 71.2 % (16.0-70.0); PLATELET COUNT 141 TH/MM3 (150-450); RED BLOOD COUNT 4.41 MIL/MM3 (4.50-5.90); RED CELL DISTRIBUTION WIDTH 13.1 % (11.6-17.2)
[2017-09-17 07:10] LABS: INTERNATIONAL NORMALIZED RATIO 1.1 RATIO; PROTHROMBIN TIME - PATIENT 11.4 SEC (9.8-11.6)
[2017-09-17 07:14] LABS: ALT (GPT) 18 U/L (12-78)
[2017-09-17] MEDS ORDERED: FUROSEMIDE 40 MG/4 ML VIAL IV PUSH ONE ×2 (07:15→16:15)
--- NOTE | 2017-09-17 07:16 | PD ---
Physical Exam Narrative Patient was seen by ED physician and signed out to me. Data Data Last Documented VS Vital Signs Date Time Temp Pulse Resp B/P (MAP) Pulse Ox O2 Delivery O2 Flow Rate FiO2 09/17/17 07:05 62 16 124/60 (81) 92 Nasal Cannula 3.00 09/17/17 06:22 97.5 Orders Orders Complete Blood Count With Diff (09/17/17 06:38) Comprehensive Metabolic Panel (09/17/17 06:38) B-Type Natriuretic Peptide (09/17/17 06:38) Act Partial Throm Time (Ptt) (09/17/17 06:38) Prothrombin Time / Inr (Pt) (09/17/17 06:38) Magnesium (Mg) (09/17/17 06:38) Ckmb (Isoenzyme) Profile (09/17/17 06:38) Troponin I (09/17/17 06:38) Iv Access Insert/Monitor (09/17/17 06:38) Electrocardiogram (09/17/17 06:38) Ecg Monitoring (09/17/17 06:38) Oximetry (09/17/17 06:38) Oxygen Administration (09/17/17 06:38) Chest, Single Ap (09/17/17 06:38) Sodium Chloride 0.9% Flush (Ns Flush) (09/17/17 06:45) Aspirin Chew (Aspirin Chew) (09/17/17 06:45) Nitroglycerin 2% Oint (Nitroglycerin 2% (09/17/17 06:45) Nitroglycerin Sl (Nitrostat Sl) (09/17/17 06:45) Furosemide Inj (Lasix Inj) (09/17/17 07:15) CKMB (09/17/17 06:44) CKMB% (09/17/17 06:44) Labs Laboratory Tests Test 09/17/17 06:14 09/17/17 06:44 White Blood Count 6.0 TH/MM3 Red Blood Count 4.41 MIL/MM3 Hemoglobin 14.5 GM/DL Hematocrit 43.3 % Mean Corpuscular Volume 98.2 FL Mean Corpuscular Hemoglobin 32.9 PG Mean Corpuscular Hemoglobin Concent 33.5 % Red Cell Distribution Width 13.1 % Platelet Count 141 TH/MM3 Mean Platelet Volume 9.3 FL Neutrophils (%) (Auto) 71.2 % Lymphocytes (%) (Auto) 16.6 % Monocytes (%) (Auto) 9.5 % Eosinophils (%) (Auto) 2.2 % Basophils (%) (Auto) 0.5 % Neutrophils # (Auto) 4.3 TH/MM3 Lymphocytes # (Auto) 1.0 TH/MM3 Monocytes # (Auto) 0.6 TH/MM3 Eosinophils # (Auto) 0.1 TH/MM3 Basophils # (Auto) 0.0 TH/MM3 CBC Comment DIFF FINAL Differential Comment B-Type Natriuretic Peptide 305 PG/ML Prothrombin Time 11.4 SEC Prothromb Time International Ratio 1.1 RATIO Activated Partial Thromboplast Time 26.8 SEC Blood Urea Nitrogen 15 MG/DL Creatinine 1.11 MG/DL Random Glucose 211 MG/DL Total Protein 7.2 GM/DL Albumin 4.2 GM/DL Calcium Level 8.7 MG/DL Magnesium Level 1.9 MG/DL Alkaline Phosphatase 54 U/L Aspartate Amino Transf (AST/SGOT) 15 U/L Alanine Aminotransferase (ALT/SGPT) 18 U/L Total Bilirubin 0.7 MG/DL Sodium Level 135 MEQ/L Potassium Level 4.8 MEQ/L Chloride Level 99 MEQ/L Carbon Dioxide Level 25.4 MEQ/L Anion Gap 11 MEQ/L Estimat Glomerular Filtration Rate 64 ML/MIN Total Creatine Kinase 145 U/L Creatine Kinase MB 1.6 NG/ML Troponin I LESS THAN 0.02 NG/ML [facility] Supervised Visit with CURTIS: No Interpretation(s) Last Impressions Chest X-Ray 09/17/17 0638 Signed Impressions: CONCLUSION: Borderline to mild cardiomegaly with interstitial edema changes in the lungs. T race pleural fluid. 7:51 AM. CBC within normal limits. Sodium 135. Glucose 211. Cardiac enzymes are normal. BNP 305. Narrative Course Patient complains of shortness of breath. Physical exam consistent with acute exacerbation CHF. Lasix 40 mg IV given. Diagnosis Primary Impression: Chest pain Qualified Codes: R07.9 - Chest pain, unspecified Additional Impressions: Shortness of breath Acute exacerbation of CHF (congestive heart failure) Qualified Codes: I50.9 - Heart failure, unspecified Michael Stokes MD Sep 17, 2017 07:16
[2017-09-17 07:18] LABS: ALKALINE PHOSPHATASE 54 U/L (45-117); TOTAL BILIRUBIN ADULT 0.7 MG/DL (0.2-1.0); TOTAL PROTEIN 7.2 GM/DL (6.4-8.2); TROPONIN I LESS THAN 0.02 NG/ML (0.02-0.05)
[2017-09-17 07:20] LABS: ALBUMIN 4.2 GM/DL (3.4-5.0); AST (GOT) 15 U/L (15-37); BICARBONATE 25.4 MEQ/L (21.0-32.0); BLOOD UREA NITROGEN 15 MG/DL (7-18); CALCIUM 8.7 MG/DL (8.5-10.1); CHLORIDE 99 MEQ/L (98-107); CREATININE 1.11 MG/DL (0.60-1.30); GLOMERULAR FILTRATION RATE 64 ML/MIN (>89); GLUCOSE,RANDOM 211 MG/DL (74-106); MAGNESIUM 1.9 MG/DL (1.5-2.5); SODIUM (NA) 135 MEQ/L (136-145)
--- NOTE | 2017-09-17 10:59 | HHI.HP ---
HPI Service [facility] Hospitalists Primary Care Physician Rosalba Edward Jr, MD Admission Diagnosis Acute exacerbation CHF Chief Complaint: Shortness of breath Travel History International Travel<30 Days: No Contact w/Intl Traveler <30 Da: No Traveled to Known Affected Are: No History of Present Illness This is an 82-year-old male patient with past medical history which includes chronic diastolic congestive heart failure last echocardiogram August 27, 2017 EF of 50-55% with grade 1 diastolic dysfunction, CAD status post HI with LAD stent placed 2013, Comer's esophagitis, hypertension, sick sinus syndrome status post pacemaker placement, COPD, chronic pancreatitis, chronic kidney disease stage II, diabetes mellitus type 2, GERD, hyperlipidemia. Patient presents to the emergency department with c/o of shortness of breath began this morning after he got up and walked to the living room. Patient reports bilateral lower extremity edema for the past week. Patient had not weighed himself lately, he does not believe he has gained weight. Patient denies pillow orthopnea or PND. He reports that he has been diagnosed with congestive heart failure in the past. He is on hydrochlorothiazide 25 mg once a day. He reports having an occasional nonproductive cough. He denies chest congestion, diaphoresis, nausea , vomiting, neck pain, abdominal pain, diarrhea, urinary symptoms or fevers. Patient reports his symptoms have improved after nitroglycerin and lasix given in the ER. In further discussion patient reports his SOB this AM was similar to how he felt in 2013 when he had his stent placed. Review of Systems Respiratory: COMPLAINS OF: Cough, Shortness of breath Cardiovascular: COMPLAINS OF: Dyspnea on Exertion, Lower Extremity Edema Past Family Social History Past Medical History chronic diastolic congestive heart failure last echocardiogram August 27, 2017 EF of 50-55% with grade 1 diastolic dysfunction, CAD status post HI with LAD stent placed 2013, Comer's esophagitis, hypertension, sick sinus syndrome status post pacemaker placement, COPD, chronic pancreatitis, chronic kidney disease stage II, diabetes mellitus type 2, GERD, hyperlipidemia. Past Surgical History Bilateral total knee arthroplasties Tonsillectomy and adenoidectomy Reported Medications Vitamin D3 (Cholecalciferol) 2,000 Unit Cap 2,000 Units PO DAILY Aspirin 81 Mg Chew 81 Mg CHEW DAILY Metformin (Metformin HCl) 500 Mg Tab 500 Mg PO DAILY With a meal Lisinopril 40 Mg Tab 40 Mg PO DAILY Lansoprazole 30 Mg Capdr 30 Mg PO DAILY Hydrocodone-Acetaminophen 10-325 mg Tab 1 Tab PO Q6H PRN Gabapentin 600 Mg Tab 600 Mg PO HS Atorvastatin (Atorvastatin Calcium) 80 Mg Tab 80 Mg PO HS Amlodipine (Amlodipine Besylate) 5 Mg Tab 5 Mg PO DAILY Novolog Inj (Insulin Aspart) 1,000 Unit/10 Ml Vial 5-12 Units SQ ACHS Max dose at bedtime ( ) units; sugars less than 70,(0) units; sugars 150-199,(2) units; sugars 200-249,(4) units; sugars 250-299,(7) units; sugars 300-349,(10) units; sugars greater than 349,(12)units Hydrochlorothiazide 25 Mg Tab 25 Mg PO DAILY Lantus Inj (Insulin Glargine) 1,000 Unit/10 Ml Vial 15 Units SQ HS Allergies: Coded Allergies: Sulfa (Sulfonamide Antibiotics) (Verified Allergy, Severe, Hives, 01/23/17 ) captopril (Verified Allergy, Unknown, 01/23/17) codeine (Verified Allergy, Unknown, 01/23/17) metoprolol (Verified Allergy, Unknown, 01/23/17) Family History Reviewed and noncontributory Social History no tob..quit smoking 36 yrs ago/etoh Physical Exam Vital Signs Vital Signs Date Time Temp Pulse Resp B/P (MAP) Pulse Ox O2 Delivery O2 Flow Rate FiO2 09/17/17 07:05 62 16 124/60 (81) 92 Nasal Cannula 3.00 09/17/17 07:00 16 09/17/17 06:42 95 Nasal Cannula 3.00 18 06:31 Nasal Cannula 3.00 18 06:31 78 22 182/73 (109) 94 Nasal Cannula 3.00 18 06:22 97.5 79 28 186/80 (115) 84 Physical Exam GENERAL: This is a well-nourished, well-developed patient, in no apparent distress. SKIN: No rashes, ecchymoses or lesions. Cool and dry. HEAD: Atraumatic. Normocephalic. No temporal or scalp tenderness. EYES: Extraocular motions intact. No scleral icterus. No injection or drainage. CARDIOVASCULAR: Regular rate and rhythm 3/6 murmur present murmur radiates to both carotids and under left arm RESPIRATORY: Clear to auscultation. Breath sounds equal bilaterally. GASTROINTESTINAL: Abdomen soft, non-tender, nondistended. No hepato-splenomegaly , or palpable masses. No guarding. MUSCULOSKELETAL: Extremities without clubbing, cyanosis, or edema. No joint tenderness, effusion. No calf tenderness. Negative Homans sign bilaterally. trace BLE edema NEUROLOGICAL: Awake and alert. No focal deficits noted. Motor and sensory grossly within normal limits. Five out of 5 muscle strength in all muscle groups. Normal speech. Laboratory Laboratory Tests Test 09/17/17 06:14 09/17/17 06:44 White Blood Count 6.0 Red Blood Count 4.41 Hemoglobin 14.5 Hematocrit 43.3 Mean Corpuscular Volume 98.2 Mean Corpuscular Hemoglobin 32.9 Mean Corpuscular Hemoglobin Concent 33.5 Red Cell Distribution Width 13.1 Platelet Count 141 Mean Platelet Volume 9.3 Neutrophils (%) (Auto) 71.2 Lymphocytes (%) (Auto) 16.6 Monocytes (%) (Auto) 9.5 Eosinophils (%) (Auto) 2.2 Basophils (%) (Auto) 0.5 Neutrophils # (Auto) 4.3 Lymphocytes # (Auto) 1.0 Monocytes # (Auto) 0.6 Eosinophils # (Auto) 0.1 Basophils # (Auto) 0.0 CBC Comment DIFF FINAL Differential Comment B-Type Natriuretic Peptide 305 Prothrombin Time 11.4 Prothromb Time International Ratio 1.1 Activated Partial Thromboplast Time 26.8 Blood Urea Nitrogen 15 Creatinine 1.11 Random Glucose 211 Total Protein 7.2 Albumin 4.2 Calcium Level 8.7 Magnesium Level 1.9 Alkaline Phosphatase 54 Aspartate Amino Transf (AST/SGOT) 15 Alanine Aminotransferase (ALT/SGPT) 18 Total Bilirubin 0.7 Sodium Level 135 Potassium Level 4.8 Chloride Level 99 Carbon Dioxide Level 25.4 Anion Gap 11 Estimat Glomerular Filtration Rate 64 Total Creatine Kinase 145 Creatine Kinase MB 1.6 Troponin I LESS THAN 0.02 Result Diagram: 09/17/1761309/17/17643 Imaging Last Impressions Chest X-Ray 09/17/17637 Signed Impressions: CONCLUSION: Borderline to mild cardiomegaly with interstitial edema changes in the lungs. T race pleural fluid. Caprini VTE Risk Assessment Caprini VTE Risk Assessment: Mod/High Risk (score >= 2) Caprini Risk Assessment Model Point Value = 1 Point Value = 2 Point Value = 3 Point Value = 5 Age 41-60 Minor surgery BMI > 25 kg/m2 Swollen legs Varicose veins or History of unexplained or recurrent spontaneous Oral contraceptives or hormone replacement Sepsis (< 1 month) Serious lung disease, including pneumonia (< 1 month) Abnormal pulmonary function Acute myocardial infarction Congestive heart failure (< 1 month) History of inflammatory bowel disease Medical patient at bed rest Age 61-74 Arthroscopic surgery Major open surgery (> 45 min) Laparoscopic surgery (> 45 min) Malignancy Confined to bed (> 72 hours) Immobilizing plaster cast Central venous access Age >= 75 History of VTE Family history of VTE Factor V Leiden Prothrombin [id number] Lupus anticoagulant Anticardiolipin antibodies Elevated serum homocysteine Heparin-induced thrombocytopenia Other congenital or acquired thrombophilia Stroke (< 1 month) Elective arthroplasty Hip, pelvis, or leg fracture Acute spinal cord injury (< 1 month) Prophylaxis Regimen Total Risk Factor Score Risk Level Prophylaxis Regimen 0-1 Low Early ambulation 2 Moderate Order ONE of the following: *Sequential Compression Device (SCD) *Heparin 5000 units SQ BID 3-4 Higher Order ONE of the following medications: *Heparin 5000 units SQ TID *Enoxaparin/Lovenox 40 mg SQ daily (WT < 150 kg, CrCl > 30 mL/min) *Enoxaparin/Lovenox 30 mg SQ daily (WT < 150 kg, CrCl > 10-29 mL/min) *Enoxaparin/Lovenox 30 mg SQ BID (WT < 150 kg, CrCl > 30 mL/min) AND/OR *Sequential Compression Device (SCD) 5 or more Highest Order ONE of the following medications: *Heparin 5000 units SQ TID (Preferred with Epidurals) *Enoxaparin/Lovenox 40 mg SQ daily (WT < 150 kg, CrCl > 30 mL/min) *Enoxaparin/Lovenox 30 mg SQ daily (WT < 150 kg, CrCl > 10-29 mL/min) *Enoxaparin/Lovenox 30 mg SQ BID (WT < 150 kg, CrCl > 30 mL/min) AND *Sequential Compression Device (SCD) Assessment and Plan Problem List: (1) Acute exacerbation of CHF (congestive heart failure) ICD Codes: I50.9 - Heart failure, unspecified Status: Acute Plan: Acute exacerbation of chronic diastolic CHF Patient seen emergency department with complaints of shortness of breath with associated bilateral lower extremity edema 2 weeks and nonproductive cough. -Chest x-ray reviewed and reveals borderline to mild cardiomegaly with an interstitial edema changes in the lungs. Trace pleural fluid Outpatient transthoracic echocardiogram August 27, 2017 reviewed and revealed normal left ventricular size. Mild concentric left ventricular hypertrophy fear. The left ventricular systolic function is low normal with an estimated ejection fraction in the range of 50-55%. Grade 1 diastolic dysfunction. Normal right ventricular size and function. The left atrium is mildly dilated. Moderate thickening of the mitral valve leaflets. Calcification of the anterior mitral valve leaflet. Mild to moderate mitral valve regurgitation. Moderate mitral annular calcification. Mild mitral valve stenosis. Mitral valve mean gradient is 3 mmHg. Moderate thickening of the aortic valve leaflets. Trace to mild aortic valve regurgitation. Mild to moderate aortic valve stenosis. Aortic valve area is 1.6 cm. Aortic valve mean gradient is 20 mmHg -BNP on admission 305 - Lasix 40 mg IV x 1 in ER. It seems that patient has voided 1500 ml+ after receiving Lasix in ER - will determine further anticoagulation based on patient's BMP and clinical presentation in AM - daily weight and strict I&O CAD - continue patient's home aspirin 81 mg daily, Atorvastatin 80 mg PO QHS -Twelve-lead EKG reviewed and reveals atrial paced rhythm - 01/24/17 Lexiscan stress test was performed under standard four minute protocol. Radionuclide was injected one minute prior to ending the test. No electrocardiographic abnormalities were present to suggest ischemia. Nuclear imaging and interpretation are pending. - Patient's symptoms are similar to the symptoms he had prior to having his stent placed in 2013 - initial troponin <0.02, trend serial troponin - continuous telemetry - consult cardiology DM type 2 on insulin - continue patient's home Metformin - accu checks ACHS with SSI coverage - At home patient takes Lantus 15 units QHS, will hold at this time may need to resume based on blood glucose HTN - Continue patient's home lisinopril 40 mg daily and amlodipine 5 mg daily with hold parameters Hyperlipidemia - Continue patient's home atorvastatin 80 mg PO QHS DVT prophylaxis with SCDs Update: patient seen by Cardiology Dr. Phelan who is recommending an additional Lasix 40 mg IV x1 then repeat Stat troponin < 0.02. Cardiology cleared for DC Patient has outpatient lexiscan 09/19/17 and follow up appointment 09/25/17 DC home in stable continue on heart healthy diet with no activity restrictions. Patient to current home regiment follow up with PCP in 1 week and cardiology as above. (2) DM (diabetes mellitus) ICD Codes: E11.9 - Diabetes mellitus Status: Chronic (3) CAD (coronary artery disease) ICD Codes: I25.10 - CAD (coronary artery disease) Status: Chronic (4) Hypertension ICD Codes: I10 - Hypertension Status: Chronic (5) Hyperlipidemia ICD Codes: E78.5 - Hyperlipidemia Status: Chronic Problem Qualifiers (1) Acute exacerbation of CHF (congestive heart failure): Qualified Codes: I50.9 - Heart failure, unspecified Belkis Tyler Sep 17, 2017 10:59
[2017-09-17 12:19] VITALS: BP 132/68
[2017-09-17 12:45] VITALS: BP 157/74; PULSE 73; RESP 20; TEMP 97.9; O2SAT 98
[2017-09-17] MEDS ORDERED: DEXTROSE 50% IN WATER 50 ML VIAL(D50) IV PUSH PRN (13:00)
[2017-09-17] MEDS ORDERED: GLUCAGON 1 MG/ML VIAL OTHER PRN (13:00)
[2017-09-17] MEDS ORDERED: PLAV75TA29 PO (13:47)
--- NOTE | 2017-09-17 14:13 | EKG ---
Date Performed: 09/17/2017 Time Performed: 05:40:15 PTAGE: 82 years EKG: Marked baseline artifact ELECTRONIC ATRIAL PACEMAKER POSSIBLE RIGHT VENTRICULAR CONDUCTION DELAY LEFT ANTERIOR FASCICULAR BLOCK POSSIBLE LEFT VENTRICULAR HYPERTROPHY POSSIBLE SEPTAL MYOCARDIAL INFARCTION ABNORMAL ECG Unfortunately, there is marked artifact and I would repeat EKG. DOCTOR: João Jorge Interpretating Date/Time 09/17/2017 14:11:11
--- NOTE | 2017-09-17 15:59 | PD.CONS ---
HPI Consult Requested By Dr. Alcantara Reason for Consult Shortness of breath Primary Care Physician Rosalba Edward Jr, MD History of Present Illness This is an 82-year-old male patient with past medical history which includes chronic diastolic congestive heart failure last echocardiogram August 27, 2017 EF of 50-55% with grade 1 diastolic dysfunction, CAD status post [place] with LAD stent placed 2013, Comer's esophagitis, hypertension, sick sinus syndrome status post pacemaker placement, COPD, chronic pancreatitis, chronic kidney disease stage II, diabetes mellitus type 2, GERD, hyperlipidemia. Patient presents to the emergency department with c/o of shortness of breath began this morning after he got up and walked to the living room. Patient reports bilateral lower extremity edema for the past few weeks. Patient denies pillow orthopnea or PND. He reports that he has been diagnosed with congestive heart failure in the past. He is on hydrochlorothiazide 25 mg once a day. He reports having an occasional nonproductive cough. He denies chest congestion, diaphoresis, nausea , vomiting, neck pain, abdominal pain, diarrhea, urinary symptoms or fevers. Patient reports his symptoms have improved after nitroglycerin and lasix 40 mg IV 1 given in the ER. He does report his SOB this AM was similar to how he felt in 2013 when he had his stent placed. He had copious urine output following administration of Lasix. Lower extremity edema has now resolved. Dyspnea has now resolved. He feels well and would like to go home. Initial cardiac biomarkers are negative. Repeat set has just been drawn and is pending. EKG is nonischemic. Review of Systems 10 point review of systems is negative other than noted in the HPI. Past Family Social History Allergies: Coded Allergies: Sulfa (Sulfonamide Antibiotics) (Verified Allergy, Severe, Hives, 01/23/17 ) captopril (Verified Allergy, Unknown, 01/23/17) codeine (Verified Allergy, Unknown, 01/23/17) metoprolol (Verified Allergy, Unknown, 01/23/17) Past Medical History chronic diastolic congestive heart failure last echocardiogram August 27, 2017 EF of 50-55% with grade 1 diastolic dysfunction, CAD status post NC with LAD stent placed 2013, Comer's esophagitis, hypertension, sick sinus syndrome status post pacemaker placement, COPD, chronic pancreatitis, chronic kidney disease stage II, diabetes mellitus type 2, GERD, hyperlipidemia. Past Surgical History Bilateral total knee arthroplasties Tonsillectomy and adenoidectomy Reported Medications Reported Meds & Active Scripts Active Reported Plavix (Clopidogrel Bisulfate) 75 Mg Tab 75 Mg PO DAILY Vitamin D3 (Cholecalciferol) 2,000 Unit Cap 2,000 Units PO DAILY Aspirin 81 Mg Chew 81 Mg CHEW DAILY Metformin (Metformin HCl) 500 Mg Tab 500 Mg PO DAILY With a meal Lisinopril 40 Mg Tab 40 Mg PO DAILY Lansoprazole 30 Mg Capdr 30 Mg PO DAILY Hydrocodone-Acetaminophen 10-325 mg Tab 1 Tab PO Q6H PRN Gabapentin 600 Mg Tab 600 Mg PO HS Atorvastatin (Atorvastatin Calcium) 80 Mg Tab 80 Mg PO HS Amlodipine (Amlodipine Besylate) 5 Mg Tab 5 Mg PO DAILY Novolog Inj (Insulin Aspart) 1,000 Unit/10 Ml Vial 5-12 Units SQ ACHS Max dose at bedtime ( ) units; sugars less than 70,(0) units; sugars 150-199,(2) units; sugars 200-249,(4) units; sugars 250-299,(7) units; sugars 300-349,(10) units; sugars greater than 349,(12)units Hydrochlorothiazide 25 Mg Tab 25 Mg PO DAILY Lantus Inj (Insulin Glargine) 1,000 Unit/10 Ml Vial 15 Units SQ HS Active Ordered Medications Current Medications Medications (Trade) Dose Ordered Sig/Elke Route Start Time Stop Time Status Last Admin (NS Flush) 2 ml UNSCH PRN IVF 09/17/17 06:45 (Nitrostat Sl) 0.4 mg Q5M PRN SL 09/17/17 06:45 09/17/17 06:45 (Norvasc) 5 mg DAILY PO 09/18/17 09:00 (Aspirin Chew) 81 mg DAILY CHEW 09/18/17 09:00 (Lipitor) 80 mg HS PO 09/17/17 21:00 (Neurontin) 600 mg HS PO 09/17/17 21:00 (Glucophage) 500 mg DAILY PO 09/18/17 09:00 (Protonix) 40 mg DAILY PO 09/18/17 09:00 (Prinivil) 40 mg DAILY PO 09/18/17 09:00 (D50w (Vial) Inj) 50 ml UNSCH PRN IV PUSH 09/17/17 13:00 (Glucagon Inj) 1 mg UNSCH PRN OTHER 09/17/17 13:00 (NovoLOG SUPPLEMENTAL SCALE) 1 ACHS SLIDING SCALE SQ 09/17/17 17:00 (Plavix) 75 mg DAILY PO 09/18/17 09:00 Family History Noncontributory Social History no tob..quit smoking 36 yrs ago/etoh Physical Exam Vital Signs Vital Signs Date Time Temp Pulse Resp B/P (MAP) Pulse Ox O2 Delivery O2 Flow Rate FiO2 09/17/17 12:45 97.9 73 20 157/74 (101) 98 09/17/17 12:19 65 15 132/68 (89) 96 Nasal Cannula 3.00 09/17/17 07:05 62 16 124/60 (81) 92 Nasal Cannula 3.00 09/17/17 07:00 16 09/17/17 06:42 95 Nasal Cannula 3.00 09/17/17 06:31 Nasal Cannula 3.00 09/17/17 06:31 78 22 182/73 (109) 94 Nasal Cannula 3.00 09/17/17 06:22 97.5 79 28 186/80 (115) 84 Physical Exam GENERAL: Well-developed well-nourished. In no acute distress. NECK: No carotid bruits. No JVD. CARDIOVASCULAR: Regular rate and rhythm. No murmur appreciated. RESPIRATORY: No accessory muscle use. Clear to auscultation. Breath sounds equal bilaterally. MUSCULOSKELETAL: No clubbing or cyanosis. No edema. NEUROLOGICAL: Awake and alert. Normal speech. Laboratory Laboratory Tests Test 09/17/17 06:14 09/17/17 06:44 09/17/17 15:05 White Blood Count 6.0 Red Blood Count 4.41 Hemoglobin 14.5 Hematocrit 43.3 Mean Corpuscular Volume 98.2 Mean Corpuscular Hemoglobin 32.9 Mean Corpuscular Hemoglobin Concent 33.5 Red Cell Distribution Width 13.1 Platelet Count 141 Mean Platelet Volume 9.3 Neutrophils (%) (Auto) 71.2 Lymphocytes (%) (Auto) 16.6 Monocytes (%) (Auto) 9.5 Eosinophils (%) (Auto) 2.2 Basophils (%) (Auto) 0.5 Neutrophils # (Auto) 4.3 Lymphocytes # (Auto) 1.0 Monocytes # (Auto) 0.6 Eosinophils # (Auto) 0.1 Basophils # (Auto) 0.0 CBC Comment DIFF FINAL Differential Comment B-Type Natriuretic Peptide 305 Prothrombin Time 11.4 Prothromb Time International Ratio 1.1 Activated Partial Thromboplast Time 26.8 Blood Urea Nitrogen 15 Creatinine 1.11 Random Glucose 211 Total Protein 7.2 Albumin 4.2 Calcium Level 8.7 Magnesium Level 1.9 Alkaline Phosphatase 54 Aspartate Amino Transf (AST/SGOT) 15 Alanine Aminotransferase (ALT/SGPT) 18 Total Bilirubin 0.7 Sodium Level 135 Potassium Level 4.8 Chloride Level 99 Carbon Dioxide Level 25.4 Anion Gap 11 Estimat Glomerular Filtration Rate 64 Total Creatine Kinase 145 Creatine Kinase MB 1.6 Troponin I LESS THAN 0.02 Result Diagram: 09/17/17 0614 09/17/17 0644 Imaging Last Impressions Chest X-Ray 09/17/17 0638 Signed Impressions: CONCLUSION: Borderline to mild cardiomegaly with interstitial edema changes in the lungs. T race pleural fluid. Assessment and Plan Assessment and Plan Dyspnea: Mild elevation in BNP 300, lower extremity edema and chest x-ray with mild pulmonary vascular congestion consistent with mild acute decompensated diastolic heart failure. He appears near euvolemic at this juncture. Symptoms have resolved. I have instructed for an additional dose of Lasix 40 mg IV 1 now. Initial ischemic evaluation with EKG and cardiac biomarkers is negative. If repeat troponin is negative okay to discharge. He is scheduled for Lexiscan stress test as an outpatient in 09/19/17 at 8:30 AM at [facility] cardiology, and follow-up with Dr. Davon Phelan 09/25/17 at 3:30 PM. No change in current medications at time of discharge. Davon Phelan DO Sep 17, 2017 15:59
[2017-09-17 16:00] VITALS: BP 160/72; PULSE 71; RESP 20; TEMP 97.7; O2SAT 94
[2017-09-17] MEDS ORDERED: INSULIN ASPART SUPPLEMENTAL SCALE SQ SCH (17:00)
[2017-09-17] MEDS ORDERED: GABAPENTIN 300 MG CAP PO SCH (21:00)
[2017-09-17] MEDS ORDERED: ATORVASTATIN 80 MG TAB PO SCH (21:00)
[2017-09-18] MEDS ORDERED: LISINOPRIL 20 MG TAB PO SCH (09:00)
[2017-09-18] MEDS ORDERED: amLODIPine BESYLATE 5 MG TAB PO SCH (09:00)
[2017-09-18] MEDS ORDERED: CLOPIDOGREL 75 MG TAB PO SCH (09:00)
[2017-09-18] MEDS ORDERED: ASPIRIN 81 MG CHEW TAB CHEW SCH (09:00)
[2017-09-18] MEDS ORDERED: metFORMIN HCL 500 MG TAB PO SCH (09:00)
[2017-09-18] MEDS ORDERED: PANTOPRAZOLE SOD 40 MG DELAYED RELEASE TAB PO SCH (09:00)
== END 2017-09-17 18:26 | disposition home or self-care (01) ==
LOC: NEPE 06:19 → NEDA 08:09 → NEPHCDU 12:27
PROVIDERS: ADMIT Hospitalist; ATTEND Hospitalist
DX: I13.0 Hypertensive heart and chronic kidney disease with heart failure and stage 1 through stage 4 chronic kidney disease, or unspecified chronic kidney disease (principal); I50.33 Acute on chronic diastolic (congestive) heart failure; E11.22 Type 2 diabetes mellitus with diabetic chronic kidney disease; N18.2 Chronic kidney disease, stage 2 (mild); R06.02 Shortness of breath; I25.10 Atherosclerotic heart disease of native coronary artery without angina pectoris; I08.0 Rheumatic disorders of both mitral and aortic valves; I44.4 Left anterior fascicular block; E78.5 Hyperlipidemia, unspecified; J44.9 Chronic obstructive pulmonary disease, unspecified; I25.2 Old myocardial infarction; K21.9 Gastro-esophageal reflux disease without esophagitis; H91.92 Unspecified hearing loss, left ear; Z79.4 Long term (current) use of insulin; Z79.899 Other long term (current) drug therapy; Z95.0 Presence of cardiac pacemaker; Z79.82 Long term (current) use of aspirin
CPT/HCPCS: 71045; 80053; 82550; 82552; 82948; 83735; 83880; 84484; 85025; 85610; 85730; 93005; 96374; 96376; 99285; G0378; J1940